=== PATIENT | male | born 1965 | race Caucasian/White ===

== ENCOUNTER 2023-08-09 01:38 | Emergency (ER) | payer OTHER, SELFPAY ==
[2023-08-09 01:42] VITALS: BP 181/108; PULSE 60; RESP 16; TEMP 36.6; O2SAT 99; BMI 28.7
--- NOTE | 2023-08-09 01:50 | CT_ITS ---
The [address] [address] Patient Name: YASMEEN VENEGAS MRN: [id number] date: 1965 Sex: M Assigned Patient Location: ER Current Patient Location: ER Accession/Order Number: [id number] Exam Date: 08/09/2023 02:06 Report Date: 08/09/2023 03:01 At the request of: TREY SMALL Procedure: CT abdomen pelvis w con EXAM: CT abdomen pelvis w con HISTORY: right upper quadrant pain COMPARISON: None. TECHNIQUE: Axial CT images through the abdomen and pelvis were obtained after the intravenous administration of 100 mL Omnipaque 300 contrast. Coronal and sagittal reformats were obtained. Dose reduction techniques were achieved by using automated exposure control and/or adjustment of mA and/or kV according to patient size and/or use of iterative reconstruction technique. FINDINGS: The visualized portions of the lung bases are clear. There is a small hiatal hernia. Abdomen: There is a subcentimeter hypodensity in the right hepatic lobe that is too small to characterize by CT size criteria. Otherwise, the liver and spleen enhance homogeneously without focal lesion. There is no intra or extrahepatic biliary duct dilatation. The gallbladder is unremarkable. The pancreas, adrenal glands, kidneys, and bowel loops, including the appendix, are unremarkable. There is no mesenteric or retroperitoneal lymphadenopathy. Pelvis: The bladder and rectum are unremarkable. There is no iliac or inguinal lymphadenopathy. Bone windows show no aggressive osseous lesions. CT/CT abdomen pelvis w con IMPRESSION: 1. No specific etiology identified to explain the patient's abdominal pain. 2. Normal appendix. Electronically authenticated by: Enoch VALLES Date: 08/09/2023 03:01
--- NOTE | 2023-08-09 01:50 | ED.ABDPAIN1 ---
HPI - Abdominal Pain General Chief Complaint: Abdominal Pain Stated Complaint: ABDOMINAL PAIN Time Seen by Provider: 08/09/23 01:41 History of Present Illness HPI narrative: 67-year-old male presents for abdominal pain. It's in his right upper quadrant and it woke him up from sleep an hour or two ago. He had some greasy food for dinner, pizza and chicken wings. He's never had pain like this before and has never had any gallbladder issues. No fever or trauma. Related Data Home Medications Medication Instructions Recorded Confirmed lisinopril 20 mg tablet mg 08/09/23 pravastatin 40 mg tablet mg 08/09/23 Previous Rx's Medication Instructions Recorded acetaminophen 300 mg-codeine 30 mg 1 tab PO Q6H PRN pain 5 days #20 08/09/23 tablet tabs ondansetron 4 mg disintegrating 4 mg PO Q6H PRN nausea and 08/09/23 tablet vomiting #20 tabs Allergies Allergy/AdvReac Type Severity Reaction Status Date / Time No Known Drug Allergies Allergy Verified 08/09/23 01:45 Review of Systems ROS Narrative A ten point review of systems is negative except as noted above. Exam Narrative Exam Narrative: Nurses note and vital signs reviewed and patient is not hypoxic. General: The patient appears well and in no apparent distress. Patient is resting comfortably on cart. Skin: Warm, dry, no pallor noted. There is no rash noted. Head: Normocephalic, atraumatic Eye: Normal conjunctiva, no drainage Ears, Nose, Mouth, and Throat: oral mucosa is moist. Nares patent. Cardiovascular: Regular Rate and Rhythm Respiratory: Patient is in no distress, no accessory muscle use, lungs are clear to auscultation, no wheezing, rales or rhonchi Back: non-tender GI: minimal tenderness in the right upper quadrant, no distention Musculoskeletal: The patient has no evidence of calf tenderness, no pitting edema, symmetrical pulses noted bilaterally Neurological: A&O, normal speech Psychiatric: Cooperative Constitutional Vital Signs, click to edit/add: Last Vital Signs Temp 97.9 F 08/09/23 01:42 Pulse 78 08/09/23 02:20 Resp 16 08/09/23 01:42 BP 184/110 H 08/09/23 02:20 Pulse Ox 99 08/09/23 01:42 O2 Del Method Room Air 08/09/23 01:42 Course Vital Signs Vital signs: Vital Signs Temperature 97.9 F 08/09/23 01:42 Pulse Rate 60 08/09/23 01:42 Respiratory Rate 16 08/09/23 01:42 Blood Pressure 181/108 H 08/09/23 01:42 Pulse Oximetry 99 08/09/23 01:42 Oxygen Delivery Method Room Air 08/09/23 01:42 Temperature 97.9 F 08/09/23 01:42 Pulse Rate 78 08/09/23 02:20 Respiratory Rate 16 08/09/23 01:42 Blood Pressure 184/110 H 08/09/23 02:20 Pulse Oximetry 99 08/09/23 01:42 Oxygen Delivery Method Room Air 08/09/23 01:42 MDM - Abdominal Pain MDM Narrative Medical decision making narrative: CT scan shows no acute findings. minimal elevation in lipase is noted. No CT findings of pancreatitis. The possibility that this is his gallbladder was discussed with the patient and he'll follow-up with his PCP if symptoms persist. Treatment diagnosis and follow-up were discussed thoroughly. Differential Diagnosis Differential diagnosis: Likely abdominal pain, acute appendicitis, calculus of kidney, constipation, gastroenteritis and pancreatitis Lab Data Attestation: I reviewed the patient's lab results. Labs: Lab Results 08/09/23 Range/Units 01:45 WBC 10.4 (4.0-11.0) 10^3/uL RBC 5.08 (4.70-6.10) 10^6/uL Hgb 15.3 (14.0-18.0) g/dL Hct 44.8 (42.0-54.0) % MCV 88.2 (80.0-94.0) fL MCH 30.1 (25.9-34.0) pg MCHC 34.2 (29.9-35.2) g/dL RDW 12.2 (11.0-15.0) % Plt Count 253 (150-450) 10^3/uL MPV 9.2 L (9.5-13.5) fL Neut % (Auto) 58.8 (43.0-75.0) % Lymph % (Auto) 28.0 (20.5-60.0) % [place] % (Auto) 10.1 (1.7-12.0) % Eos % (Auto) 1.9 (0.9-7.0) % Baso % (Auto) 0.4 (0.2-2.0) % Neut # (Auto) 6.1 (1.4-6.5) 10^3/uL Lymph # (Auto) 2.9 (1.2-3.8) 10^3/uL [place] # (Auto) 1.1 H (0.3-0.8) 10^3/uL Eos # (Auto) 0.2 (0.0-0.7) 10^3/uL Baso # (Auto) 0.0 (0.0-0.1) 10^3/uL Abs Immat Gran (auto) 0.08 H (0.00-0.03) 10^3/uL Imm/Tot Granulo (auto) 0.8 H (0.0-0.5) % Sodium 135 L (136-145) mmol/L Potassium 3.7 (3.5-5.1) mmol/L Chloride 102 (98-107) mmol/L Carbon Dioxide 29.8 (21.0-32.0) mmol/L Anion Gap 6.9 BUN 28.0 H (7.0-18.0) mg/dL Creatinine 1.32 H (0.70-1.30) mg/dL Est GFR ( Amer) >60 (>=60) Est GFR (Non-Af Amer) 56 L (>=60) BUN/Creatinine Ratio 21.2 Glucose 117 H (74-106) mg/dL Calcium 9.0 (8.5-10.1) mg/dL Total Bilirubin 0.2 (0.2-1.0) mg/dL Direct Bilirubin 0.1 (0.0-0.2) mg/dL AST 24 (15-37) U/L ALT 52 (16-63) U/L Alkaline Phosphatase 95 (46-116) U/L Total Protein 7.1 (6.4-8.2) g/dL Albumin 3.5 (3.4-5.0) g/dL Globulin 3.6 g/dL Albumin/Globulin Ratio 1.0 Amylase 74 (25-115) U/L Lipase 154.0 H (16.0-77.0) U/L Imaging Data CT scan - abdomen: Radiologist's impression: Procedure: CT abdomen pelvis w con EXAM: CT abdomen pelvis w con HISTORY: right upper quadrant pain COMPARISON: None. TECHNIQUE: Axial CT images through the abdomen and pelvis were obtained after the intravenous administration of 100 mL Omnipaque 300 contrast. Coronal and sagittal reformats were obtained. Dose reduction techniques were achieved by using automated exposure control and/or adjustment of mA and/or kV according to patient size and/or use of iterative reconstruction technique. FINDINGS: The visualized portions of the lung bases are clear. There is a small hiatal hernia. Abdomen: There is a subcentimeter hypodensity in the right hepatic lobe that is too small to characterize by CT size criteria. Otherwise, the liver and spleen enhance homogeneously without focal lesion. There is no intra or extrahepatic biliary duct dilatation. The gallbladder is unremarkable. The pancreas, adrenal glands, kidneys, and bowel loops, including the appendix, are unremarkable. There is no mesenteric or retroperitoneal lymphadenopathy. Pelvis: The bladder and rectum are unremarkable. There is no iliac or inguinal lymphadenopathy. Bone windows show no aggressive osseous lesions. IMPRESSION: 1. No specific etiology identified to explain the patient's abdominal pain. 2. Normal appendix. Electronically authenticated by: Enoch VALLES Date: 08/09/2023 Discharge Plan Discharge Chief Complaint: Abdominal Pain Clinical Impression: Abdominal pain Patient Disposition: Home, Self-Care Time of Disposition Decision: 03:12 Condition: Good Mode of Transportation: Private Vehicle Prescriptions / Home Meds: New acetaminophen-codeine 300-30 mg tablet 1 tab PO Q6H PRN (Reason: pain) 5 Days Qty: 20 0RF ondansetron 4 mg tablet,disintegrating 4 mg PO Q6H PRN (Reason: nausea and vomiting) Qty: 20 0RF No Action pravastatin 40 mg tablet lisinopril 20 mg tablet Instructions: Abdominal Pain (ED) Additional Instructions: follow up with Dr. Skinner if symptoms persist Stand Alone Forms: Portal Instructions Referrals: Fredi Skinner MD [Primary Care Provider] - 1 week
[2023-08-09 01:56] LABS: Basophils Percent Auto 0.4 % (0.2-2.0); Eosinophils Absolute Auto 0.2 10^3/uL (0.0-0.7); Eosinophils Percent Auto 1.9 % (0.9-7.0); Hematocrit 44.8 % (42.0-54.0); Hemoglobin 15.3 g/dL (14.0-18.0); Immature Granulocytes Abs Auto 0.08 10^3/uL (0.00-0.03); Immature Granulocytes Pct Auto 0.8 % (0.0-0.5); Lymphocytes Absolute Auto 2.9 10^3/uL (1.2-3.8); Mean Corpuscular HGB Conc 34.2 g/dL (29.9-35.2); Mean Corpuscular Hemoglobin 30.1 pg (25.9-34.0); Mean Corpuscular Volume 88.2 fL (80.0-94.0); Mean Platelet Volume 9.2 fL (9.5-13.5); Monocytes Absolute Auto 1.1 10^3/uL (0.3-0.8); Monocytes Percent Auto 10.1 % (1.7-12.0); Neutrophils Absolute Auto 6.1 10^3/uL (1.4-6.5); Neutrophils Percent Auto 58.8 % (43.0-75.0); Platelet Count 253 10^3/uL (150-450); Red Blood Count 5.08 10^6/uL (4.70-6.10); Red Cell Distribution Width 12.2 % (11.0-15.0); White Blood Count 10.4 10^3/uL (4.0-11.0)
[2023-08-09 02:10] LABS: Alanine Aminotransferase 52 U/L (16-63); Albumin Level 3.5 g/dL (3.4-5.0); Alkaline Phosphatase 95 U/L (46-116); Amylase 74 U/L (25-115); Anion Gap 6.9; Aspartate Amino Transferase 24 U/L (15-37); BUN Creatinine Ratio 21.2; Bilirubin Direct 0.1 mg/dL (0.0-0.2); Bilirubin Total 0.2 mg/dL (0.2-1.0); Carbon Dioxide 29.8 mmol/L (21.0-32.0); Chloride 102 mmol/L (98-107); Estimated GFR (African America >60 (>=60); Estimated GFR (Non-African Ame 56 (>=60); Globulin 3.6 g/dL; Glucose 117 mg/dL (74-106); Potassium 3.7 mmol/L (3.5-5.1); Sodium 135 mmol/L (136-145); Total Protein 7.1 g/dL (6.4-8.2)
[2023-08-09 02:20] VITALS: BP 184/110; PULSE 78
[2023-08-09] MEDS: ONDANSETRON PF 4 MG/2 ML VIAL IV (02:38)
[2023-08-09] MEDS: MORPHINE SULFATE 4 MG/ML VIAL IV (02:38)
[2023-08-09 03:33] VITALS: BP 162/90; PULSE 56; RESP 16; O2SAT 100
== END 2023-08-09 03:30 | disposition home or self-care (01) ==
PROVIDERS: Emergency Provider Emergency Medicine; PCP Family Medicine
DX: R10.9 Unspecified abdominal pain (principal); Z79.899 Other long term (current) drug therapy
CPT/HCPCS: 36415; 74177; 80048; 80076; 82150; 83690; 85025; 96374; 99285; J2270; J2405; Q9967

== ENCOUNTER 2023-09-19 07:41 | Outpatient (OUT) | payer OTHER, SELFPAY ==
--- OUTSIDE RECORDS SUMMARY | 2023-09-19 07:47 | XMS_ITS | CCD ---
Author Name Unknown Address [address] [place] [address] Organization [facility] Care Team Providers Care Roll Former Name Role Phone LUIS FELIPE, DR LAM Admitting Unavailable KECIAY, DR LAM Attending Unavailable HOY, DR LAM Primary Care Unavailable KECIAY, DR LAM Consulting Unavailable HOY, DR LAM Admitting Unavailable HOY, DR LAM Attending Unavailable HOY, DR LAM Primary Care Unavailable HOY, DR LAM Consulting Unavailable HOY, DR LAM Admitting Unavailable HOY, DR LAM Attending Unavailable HOY, DR LAM Primary Care Unavailable HOY, DR ALM Consulting Unavailable WEST, DR FAYE Gooden Consulting Unavailable Problems Active Problems Problem Classification Problem Date Documented Da te Episodic/Chronic Other screening for suspected conditions (not mental disorders or infectious disease) (1 source) Encounter for screening for malignant neoplasm of prostate; Translations: [ENC SCREEN MALIG NEOPLASM PROSTATE] Onset: 07-15-2022 Episodic Unclassified (2 sources) CONTACT W/AND (SUSP) EXPOS COVID-19; Translations: [CONTACT W/AND (SUSP) EXPOS COVID-19] Onset: 08-05-2021 Viral infection (1 source) COVID-19; Translations: [COVID-19] Onset: 08-05-2021 Past or Other Problems Problem Classification Problem Date Documented Da te Episodic/Chronic Joint disorders and dislocations; trauma-related (1 source) Complex tear of medial meniscus, current injury, right knee, initial encounter; Translations: [COMPLEX TEAR MM CURR RT KNEE INIT] Onset: 08-29-2021 Episodic Other non-traumatic joint disorders (4 sources) Pain in right knee; Translations: [PAIN IN RIGHT KNEE] Onset: 08-27-2021 Episodic Unclassified (1 source) CONTACT W/AND (SUSP) EXPOS COVID-19; Translations: [CONTACT W/AND (SUSP) EXPOS COVID-19] Onset: 07-30-2021 Results Test Name Value Interpretation Reference Range Facility INSULINon 07-12-2022 Insulin 7.4 uIU/mL Normal 2.6-24.9 [facility] Comment on above: Performed By: #### I NSULIN #### [facility] [address] [place] [address] Dr. Aparna Teran CBC AUTO DIFFon 07-11-2022 BASO # 0.0 103/ul Normal 0.0-0.1 [facility] Comment on above: Performed By: #### C BC #### [facility] [address] [place] [address] Dr. Aparna Teran Basophils/100 WBC (Bld) 0.5 % Normal 0.2-2.0 [facility] Comment on above: Performed By: #### C BC #### [facility] [address] [place] [address] Dr. Aparna Teran EO # 0.1 103/ul Normal 0.0-0.7 [facility] Comment on above: Performed By: #### C BC #### [facility] [address] [place] [address] Dr. Aparna Teran Eosinophils/100 WBC (Bld) 1.4 % Normal 0.9-7.0 [facility] Comment on above: Performed By: #### C BC #### [facility] [address] [place] [address] Dr. Aparna Teran Erythrocyte distribution width (RBC) [Ratio] 12.6 % Normal 11.0-15.0 [facility] Comment on above: Performed By: #### C BC #### [facility] [address] [place] [address] Dr. Aparna Teran Hematocrit (Bld) [Volume fraction] 45.2 % Normal 42.0-54.0 [facility] Comment on above: Performed By: #### C BC #### [facility] [address] [place] [address] Dr. Aparna Teran Hemoglobin (Bld) [Mass/Vol] 15.6 g/dL Normal 14.0-18.0 [facility] Comment on above: Performed By: #### C BC #### [facility] [address] [place] [address] Dr. Aparna Teran IG # 0.02 10e3/ul Normal 0.00-0.03 [facility] Comment on above: Performed By: #### C BC #### [facility] [address] [place] [address] Dr. Aparna Teran IG % 0.3 % Normal 0.0-0.5 [facility] Comment on above: Performed By: #### C BC #### [facility] [address] [place] [address] Dr. Aparna Teran LYMPH # 1.6 103/ul Normal 1.2-3.8 [facility] Comment on above: Performed By: #### C BC #### [facility] [address] [place] [address] Dr. Aparna Teran Lymphocytes/100 WBC (Bld) 25.0 % Normal 20.5-60.0 [facility] Comment on above: Performed By: #### C BC #### [facility] [address] [place] [address] Dr. Aparna Teran MANUAL DIFF REQ NO Normal [facility] Comment on above: Performed By: #### C BC #### [facility] [address] [place] [address] Dr. Aparna Teran MCH (RBC) [Entitic mass] 29.3 pg Normal 25.9-34.0 [facility] Comment on above: Performed By: #### C BC #### [facility] [address] [place] [address] Dr. Aparna Teran MCHC (RBC) [Mass/Vol] 34.5 g/dL Normal 29.9-35.2 [facility] Comment on above: Performed By: #### C BC #### [facility] [address] [place] [address] Dr. Aparna Teran MCV (RBC) [Entitic vol] 84.8 fL Normal 80.0-94.0 [facility] Comment on above: Performed By: #### C BC #### [facility] [address] [place] [address] Dr. Aparna Teran MONO # 0.4 103/ul Normal 0.3-0.8 [facility] Comment on above: Performed By: #### C BC #### [facility] [address] [place] [address] Dr. Aparna Teran Monocytes/100 WBC (Bld) 6.6 % Normal 1.7-12.0 [facility] Comment on above: Performed By: #### C BC #### [facility] [address] [place] [address] Dr. Aparna Teran NEUT # 4.2 103/ul Normal 1.4-6.5 [facility] Comment on above: Performed By: #### C BC #### [facility] [address] [place] [address] Dr. Aparna Teran Neutrophils/100 WBC (Bld) 66.2 % Normal 43.0-75.0 [facility] Comment on above: Performed By: #### C BC #### [facility] [address] [place] [address] Dr. Aparna Teran Platelet mean volume (Bld) [Entitic vol] 9.9 fL Normal 9.5-13.5 [facility] Comment on above: Performed By: #### C BC #### [facility] [address] [place] [address] Dr. Aparna Teran PLT 205 103/ul Normal 150-450 [facility] Comment on above: Performed By: #### C BC #### [facility] [address] [place] [address] Dr. Aparna Teran RBC 5.33 106/ul Normal 4.70-6.10 [facility] Comment on above: Performed By: #### C BC #### [facility] [address] [place] [address] Dr. Aparna Teran WBC 6.4 103/ul Normal 4.0-11.0 [facility] Comment on above: Performed By: #### C BC #### [facility] [address] [place] [address] Dr. Aparna Teran GLYCOHEMOGLOBIN A1Con 2021 ADA RECOMMENDATION SEE BELOW Normal [facility] Comment on above: Result Comment: ADA RECOMMENDED LIMIT 4.0 - 6.0 ADA THERAPEUTIC TARGET < 7.0 ACTION SUGGESTED > 7.0 Performed By: #### A 1C #### [facility] [address] [address] [address] Aparna Teran Glucose [Mass/Vol] 117 mg/dL Normal [facility] Comment on above: Performed By: #### A 1C #### [facility] [address] [address] [address] Aparna Teran HbA1c (Bld) [Mass fraction] 5.7 % Normal 4.5-6.2 [facility] Comment on above: Performed By: #### A 1C #### [facility] [address] [place] [address] Dr. Aparna Teran LIPID PROFILEon 07-11-2022 CHOL-HDL RATIO NORM SEE BELOW Normal [facility] Comment on above: Result Comment: 3.3 - 4.4 LOW RISK 4.4 - 7.1 AVERAGE RISK 7.1 - 11.0 MODERATE RISK >11.0 HIGH RISK Performed By: #### L IPID, CMP #### [facility] [address] [place] [address] Dr. Aparna Teran Cholesterol [Mass/Vol] 168 mg/dL Normal <=200 [facility] Comment on above: Performed By: #### L IPID, CMP #### [facility] [address] [address] [address] pAarna Teran Cholesterol in HDL [Mass/Vol] 40 mg/dL Normal 40-60 [facility] Comment on above: Performed By: #### L IPID, CMP #### [facility] [address] [address] [address] Aparna Teran Cholesterol in LDL [Mass/Vol] 106.6 mg/dL Normal [facility] Comment on above: Performed By: #### L IPID, CMP #### [facility] [address] [place] [address] Dr. Aparna Teran Cholesterol.total/Ch olesterol in HDL [Mass ratio] 4.2 {ratio} Normal [facility] Comment on above: Performed By: #### L IPID, CMP #### [facility] [address] [address] [address] Aparna Teran HDL NORMAL > or = 60 mg/dl - LOW CARDIOVASCULAR RISK <40 mg/dl - HIGH CARDIOVASCULAR RISK Normal [facility] Comment on above: Performed By: #### L IPID, CMP #### [facility] [address] [address] [address] Aparna Teran LDL CALC NORMAL SEE BELOW Normal [facility] Comment on above: Result Comment: <100 mg/dl OPTIMAL 100 - 129 mg/dl NEAR OR ABOVE OPTIMAL 130 - 159 mg/dl BORDERLINE HIGH 160 - 189 mg/dl HIGH >190 mg/dl VERY HIGH Performed By: #### L IPID, CMP #### [facility] [address] [place] [address] Dr. Aparna Teran Triglyceride [Mass/Vol] 107 mg/dL Normal <=150 [facility] Comment on above: Performed By: #### L IPID, CMP #### [facility] [address] [address] [address] Aparna Teran VLDL CALC 21.4 mg/dL Normal [facility] Comment on above: Performed By: #### L IPID, CMP #### [facility] [address] [place] [address] Dr. Aparna Teran PROF 14(COMP METB)on 022 Albumin [Mass/Vol] 3.8 g/dL Normal 3.4-5.0 [facility] Comment on above: Performed By: #### L IPID, CMP #### [facility] [address] [place] [address] Dr. Aparna Teran Albumin/Globulin [Mass ratio] 1.1 {ratio} Normal [facility] Comment on above: Performed By: #### L IPID, CMP #### [facility] [address] [place] [address] Dr. Aparna Teran ALP [Catalytic activity/Vol] 100 U/L Normal 46-116 [facility] Comment on above: Performed By: #### L IPID, CMP #### [facility] [address] [address] [address] Aparna Teran ALT [Catalytic activity/Vol] 35 U/L Normal 16-63 [facility] Comment on above: Performed By: #### L IPID, CMP #### [facility] [address] [address] [address] Aparna Teran Anion gap [Moles/Vol] 9.2 mmol/L Normal [facility] Comment on above: Performed By: #### L IPID, CMP #### [facility] [address] [address] [address] Aparna Teran AST [Catalytic activity/Vol] 24 U/L Normal 15-37 [facility] Comment on above: Performed By: #### L IPID, CMP #### [facility] [address] [place] [address] Dr. Aparna Teran Bilirubin [Mass/Vol] 0.6 mg/dL Normal 0.2-1.0 [facility] Comment on above: Performed By: #### L IPID, CMP #### [facility] [address] [place] [address] Dr. Aparna Teran Calcium [Mass/Vol] 8.9 mg/dL Normal 8.5-10.1 [facility] Comment on above: Performed By: #### L IPID, CMP #### [facility] [address] [place] [address] Dr. Aparna Teran Chloride [Moles/Vol] 103 mmol/L Normal 98-107 [facility] Comment on above: Performed By: #### L IPID, CMP #### [facility] [address] [place] [address] Dr. Aparna Teran CO2 [Moles/Vol] 29.0 mmol/L Normal 21.0-32.0 [facility] Comment on above: Performed By: #### L IPID, CMP #### [facility] [address] [place] [address] Dr. Aparna Teran Creatinine [Mass/Vol] 1.13 mg/dL Normal 0.70-1.30 [facility] Comment on above: Performed By: #### L IPID, CMP #### [facility] [address] [address] [address] Aparna Teran EGFR-AF PRYDEINIG >60 Normal >=60 [facility] Comment on above: Performed By: #### L IPID, CMP #### [facility] [address] [address] [address] Aparna Teran EGFR-NON AF PRYDEINIG >60 Normal >=60 [facility] Comment on above: Performed By: #### L IPID, CMP #### [facility] [address] [address] [address] Aparna Teran Globulin (S) [Mass/Vol] 3.4 g/dL Normal [facility] Comment on above: Performed By: #### L IPID, CMP #### [facility] [address] [address] [address] Aparna Teran Glucose [Mass/Vol] 102 mg/dL Normal 74-106 [facility] Comment on above: Performed By: #### L IPID, CMP #### [facility] [address] [address] [address] Aparna Teran Potassium [Moles/Vol] 4.2 mmol/L Normal 3.5-5.1 [facility] Comment on above: Performed By: #### L IPID, CMP #### [facility] [address] [address] [address] Aparna Teran Protein [Mass/Vol] 7.2 g/dL Normal 6.4-8.2 [facility] Comment on above: Performed By: #### L IPID, CMP #### [facility] [address] [address] [address] Aparna Teran Sodium [Moles/Vol] 137 mmol/L Normal 136-145 [facility] Comment on above: Performed By: #### L IPID, CMP #### [facility] [address] [address] [address] Aparna Teran Urea nitrogen [Mass/Vol] 22.0 mg/dL Critically high 7.0-18.0 [facility] Comment on above: Performed By: #### L IPID, CMP #### [facility] [address] [address] [address] Aparna Teran Urea nitrogen/Creatinine [Mass ratio] 19.5 mg/mg Normal [facility] Comment on above: Performed By: #### L IPID, CMP #### [facility] [address] [place], [place] [address] Dr. Aparna Teran MRI KNEE RT WO CONon 022 MRI KNEE RT WO CON EXAMINATION: MRI KNEE RT WO CON HISTORY: Pain of right knee joint COMPARISON: No relevant comparison available. TECHNIQUE: A complete multi-planar MRI was performed. FINDINGS: MEDIAL COMPARTMENT MEDIAL MENISCUS: Complex tear involving the body and posterior horn CARTILAGE: Moderate chondromalacia BONES: 1.9 x 1.3 cm area of bone edema in the medial femoral condyle best seen on sagittal image #11. MCL AND MEDIAL CAPSULE: Normal medial collateral ligament and medial capsule. LATERAL COMPARTMENT LATERAL MENISCUS: No visible tear or significant degeneration. CARTILAGE: No visible defect. BONES: No marrow pathology, fracture, or significant arthropathy. LCL/POSTEROLAT COMPLEX: Normal lateral collateral ligament, fascicles, lateral capsule and ligaments. ANTERIOR COMPARTMENT PATELLA: No marrow pathology, fracture, or significant arthropathy. CARTILAGE: No visible defect. TENDONS: Normal. EFFUSION: Large joint effusion. ACL: Increased signal suggesting strain PCL: Ill-defined proximal fibers suggesting partial tear MENISCOFEMORAL: Normal meniscofemoral ligaments. OTHER: Negative. 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 When there are no FDA-approved or cleared tests available, and other criteria are met, FDA can make tests available under an emergency access mechanism called an Emergency Use Authorization (EUA). The EUA for this test is supported by the [place] of Health and Human Service's (HHS's) declaration that circumstances exist to justify the emergency use of in vitro diagnostics for the detection and/or diagnosis of the virus that causes COVID-19. This EUA will remain in effect (meaning this test can be used) for the duration of the COVID-19 declaration justifying emergency of IVDs, unless it is terminated or revoked by FDA (after which the test may no longer be used). Performed By: #### [facility] #### [facility] [address] [address] [address] Aparna Teran Provider Letteron 07-13-2021 Provider Letter July 13, 2021 July 13, 2021 YASMEEN VENEGAS [address] [place] [address] YASMEEN VENEGAS 1965 Dear Yasmeen _ , We have been trying to reach you with no success. It is important that you return our call regarding your referral from Dr. Briscoe upon receiving this letter. Also, at the time of your call, please provide us with your current information. Thank you for your prompt attention to this matter. Sincerely, General Surgery [phone] [facility] Physician Referralon 021 Physician Referral [phone] [id number] [facility] Encounters Encounter Date Encounter Type Care Provider Facility Start: 07-15-2022 Encounter for genera l adult medical examination without abnormal findings DR CAROLE BRISCOE [facility] Start: 07-11-2022 End: 07-12-[address] CAROLE BRISCOE Facility:[facility] Start: 07-11-2022 End: 07-12-2022 Encounter for general adult medical examination without abnormal findings DR CAROLE BRISCOE Facility:[facility] Start: 08-27-2021 End: 08-28-[address] CAROLE BRISCOE Facility:[facility] Start: 07-30-2021 End: 07-30-[address] CAROLE BRISCOE Facility:[facility] Procedures Date Procedure Procedure Detail Performing Clinician Start: 07-11-[address] BREN BRISCOE Comment on above: Performed By: #### P [facility] #### [facility] [address] [place], [place] [address] Dr. Aparan Teran Payers Date Payer Category Payer Unknown [id number] [id number] [id number] 1965 Unknown [id number] [id number] [id number] 1965 Unknown [id number] [id number] [id number] 1957 Unknown [id number] Summary Purpose Family History No Family History Records FoundNo Family History Records Found Advance Directives No Advanced Directives Records FoundNo Advanced Directives Records Found Additional Source Comments (unrecognized sect ion and content) No Status Records FoundNo Status Records Found INFORMATION SOURCE (unrecogn ized section and content) DATE CREATED AUTHOR 07/14/2021 [facility] DATE CREATED AUTHOR AUTHOR'S ORGANIZ [facility] 07/16/2022 [facility] FOR RECORDS PERTAINING TO PATIENTS WHO ARE OR HAVE BEEN ENROLLED IN A CHEMICAL DEPENDENCY/SUBSTANCEABUSE PROGRAM, SOME INFORMATION MAY BE OMITTED. This clinical summary was aggregated from multiple sources. Caution should be exercised in using it in the provision of clinical care. This summary normalizes information from multiple sources, and as a consequence, information in this document may materially change the coding, format and clinical context of patient data. In addition, data may be omitted in some cases. CLINICAL DECISIONS SHOULD BE BASED ON THE PRIMARY CLINICAL RECORDS. [employer] provides no warranty or guarantee of the accuracy or completeness of information in this document.
[2023-09-19 08:22] LABS: Basophils Percent Auto 0.5 % (0.2-2.0); Eosinophils Absolute Auto 0.1 10^3/uL (0.0-0.7); Eosinophils Percent Auto 1.2 % (0.9-7.0); Hematocrit 46.9 % (42.0-54.0); Hemoglobin 15.6 g/dL (14.0-18.0); Immature Granulocytes Abs Auto 0.01 10^3/uL (0.00-0.03); Immature Granulocytes Pct Auto 0.1 % (0.0-0.5); Mean Corpuscular HGB Conc 33.3 g/dL (29.9-35.2); Mean Corpuscular Hemoglobin 29.7 pg (25.9-34.0); Mean Corpuscular Volume 89.3 fL (80.0-94.0); Mean Platelet Volume 10.1 fL (9.5-13.5); Monocytes Absolute Auto 0.8 10^3/uL (0.3-0.8); Neutrophils Absolute Auto 5.6 10^3/uL (1.4-6.5); Neutrophils Percent Auto 74.2 % (43.0-75.0); Platelet Count 170 10^3/uL (150-450); Red Blood Count 5.25 10^6/uL (4.70-6.10); Red Cell Distribution Width 12.9 % (11.0-15.0); White Blood Count 7.6 10^3/uL (4.0-11.0)
[2023-09-19 09:27] LABS: Estimated Average Glucose 111 mg/dL; Glycohemoglobin A1C 5.5 % (4.5-6.2)
[2023-09-19 11:57] LABS: Alanine Aminotransferase 36 U/L (16-63); Albumin Level 3.7 g/dL (3.4-5.0); Alkaline Phosphatase 99 U/L (46-116); Anion Gap 10.8; Aspartate Amino Transferase 26 U/L (15-37); BUN Creatinine Ratio 16.8; Bilirubin Total 0.6 mg/dL (0.2-1.0); Calcium 9.2 mg/dL (8.5-10.1); Carbon Dioxide 28.6 mmol/L (21.0-32.0); Chloride 103 mmol/L (98-107); Chol HDL Ratio 4.3; Cholesterol 167 mg/dL (<=200); Estimated GFR (African America >60 (>=60); Estimated GFR (Non-African Ame >60 (>=60); Globulin 3.7 g/dL; Glucose 90 mg/dL (74-106); HDL Cholesterol 39 mg/dL (40-60); Potassium 4.4 mmol/L (3.5-5.1); Sodium 138 mmol/L (136-145); Total Protein 7.4 g/dL (6.4-8.2); Triglycerides 95 mg/dL (<=150)
== END 2023-09-19 07:42 | disposition home or self-care (01) ==
LOC: LAB 07:43
PROVIDERS: PCP Family Medicine; Visit Provider Family Medicine
DX: Z00.00 Encounter for general adult medical examination without abnormal findings (principal); R53.83 Other fatigue
CPT/HCPCS: 36415; 80053; 80061; 83036; 85025; G0103

== ENCOUNTER 2025-01-27 08:16 | Outpatient (OUT) | payer OTHER, SELFPAY ==
--- OUTSIDE RECORDS SUMMARY | 2024-01-15 07:08 | XMS_ITS ---
Author Organization [facility] [place] Address [address] [place] [address] Care Team Providers Care Member Of Technical Staff Name Role Phone Susanne Stephon Primary Care Provider [phone] CAROLE BRISCOE Unavailable [phone] Medications Medication SIG (Take, Route, Fr equency, Duration) Notes Start Date End Date Status Lisinopril 20 MG 2 tablets Oral once daily for 90 days Active Encounters Encounter Location Date Provider Diagnosis [facility] [address] [place] [address] 01/15/2024 CAROLE BRISCOE Plan Of Treatment Medication Medication Name Sig Start Date Stop Date Notes Lisinopril 20 MG 2 tablets Oral once daily for 90 days Progress Notes * Jadon RUSSODOB:1965 (58 yo M)Acc No.[id number]:01/15/2024 Patient: Imani Jadon YOUNG :1965 A ge:58 Y S ex:Male Address:[address] [facility] [place] [address] * Refills Refill Lisinopril Tablet, 20 MG, Oral, 180, 2 tablets, once daily, 90 days, Refills=3 * true * Date: Generated for Jorge rizo/Myriam/eTransmitting on: 0 01/27/2025 08:22 AM EDT
--- OUTSIDE RECORDS SUMMARY | 2024-10-12 04:54 | XMS_ITS ---
Author Organization [facility] [place] Address [address] [place] [address] Care Team Providers Care Payroll Manager Name Role Phone Kalianita Stephon Primary Care Provider REASON FOR VISIT rf Pravastatin Medications Medication SIG (Take, Route, Frequency, Duration) Notes Start Date End Date Status Pravastatin Sodium 40 MG 1 tablet Orally Once a day for 30 days 07/07/2023 Active Encounters Encounter Location Date Provider Diagnosis [facility] [address] [facility] [place] [address] 10/12/2024 Stephon Susanne Plan Of Treatment Medication Medication Name Sig Start Date Stop Date Notes Pravastatin Sodium 40 MG 1 tablet Orally Once a day for 30 days 07/07/2023 Progress Notes * Jadon RUSSODOB:1965 (58 yo M)Acc No.[id number]:10/12/2024 Patient: Imani Jadon YOUNG :1965 A ge:58 Y S ex:Male Address:[address] [place] [address] * Refills Refill Pravastatin Sodium Tablet, 40 MG, Orally, 30, 1 tablet, Once a day, 30 days, Refills=11 * true * Date: Generated for Jorge rizo/Myriam/eTransmitting on: 0 01/27/2025 08:22 AM EDT
--- OUTSIDE RECORDS SUMMARY | 2024-11-11 11:00 | XMS_ITS ---
Author Organization [facility] in [place] Address [address] [place] [address] Care Team Providers Care Sanitation Director Name Role Phone Susanne Stephon Primary Care Provider Allergies No Known Allergies Reason For Referral Reason screening colonoscop y Diagnosis 1 Well adult (Z00.00) Referral Organization [facility] Referring Provider First Name Stephon Referring Provider Last Name Susanne Referring Provider Speciality Family Med icibenita Referred Provider Justin Jacobson Referred Provider Specialty General Surg alton Referral Priority Routine REASON FOR VISIT ANNUAL-NEEDS MEDS- due for yearly labs Medications Medication SIG (Take, Route, Frequency, Duration) Notes Start Date End Date Status Lisinopril 20 MG 2 tablets Oral once daily for 90 days Active Pravastatin Sodium 40 MG 1 tablet Orally Once a day for 30 days 07/07/2023 Active Social History Tobacco Use: Social History Observation Description Date Details (start date - stop date) Never Smoker NA - NA Tobacco Use/Smoking Question Answer Notes Patient is a nonsmoker Problems Problem Type SNOMED Code ICD Code Onset Dates Problem Status W/U Status Risk Notes Problem Well adult (083910904) Well adult (Z00.00) Active confirmed Vital Signs Blood pressure systolic 108 mm Hg 11/12/19 25 Blood pressure diastolic 82 mm Hg 025 Height 70 in 11/11/2024 Weight 207.8 lbs 11/11/2024 BMI 29.81 kg/m2 11/11/2024 Encounters Encounter Location Date Provider Diagnosis [facility] [address] [facility] [place] [address] 11/11/2024 Stephon Hoy Well adult Z00.0 0 Assessments Encounter Date Diagnosis (ICD Code) Assessment Notes Treatment Notes Treatment Clinical Notes Section Notes 11/11/2024 Well adult (ICD-10 - Z00.00) Plan Of Treatment Medication Medication Name Sig Start Date Stop Date Notes Lisinopril 20 MG 2 tablets Oral once daily for 90 days Pravastatin Sodium 40 MG 1 tablet Orally Once a day for 30 days 07/07/2023 Pending Test Test Name Order Date HEMOGLOBIN A1C (GLYCO) 11/11/2024 LIPID PANEL (CHOL/TRIG/HDL/LDL) 11/12/19 THYROID PANEL (T4/TSH/FREE T3) PSA, SCREENING 11/11/2024 CMP (COMP MET WILKINS) w/eGFR CKD-EPI 2024 CBC WITH DIFF 11/11/2024 Referrals Referral Date Details 11/11/2024 11/11/2024, abenain ryan colonoscopy, Justin Jacobson Progress Notes * Jadon RUSSODOB:1965 (58 yo M)Acc No.[id number]:11/11/2024 Progress Note Patient: Jadon STERN Provider: Arlyn Skinner ([facility])MD :1965 A ge:58 Y S ex:Male Date:11/11/2024 Address:[address] [place], [place] [id number] Check In:02:49 PM ESTCheck O ut:04:05 PM EST Subjective: * Chief Complaints: * A NNUAL-NEEDS MEDS- due for yearly labs * HPI: D epression Screening: PHQ-2 (2015 Edition) L ittle interest or pleasure in doing things??Not at all F eeling down, depressed, or hopeless? N ot at all T otal Score 0 * ROS: E ENT: hearing changes d enies. v isual changes d enies.?non-healing mouth sores d enies. s wollen glands or neck lumps d enies. h oarseness d enies. s ore throat d enies. d ifficulty swallowing d enies. n ose bleeds d enies. n praveen congestion d enies. e ar ache d enies. e ar discharge?denies. r inging in ears d enies. l ight sensitivity d enies. e ye pain d enies. b lurring d enies. e ye irritation d enies. d ouble vision d enies.?vision loss d enies. G eneral/Constitutional: Sweats: D enies. F atigue d enies. S leep problems d enies. A norexia d enies. M alaise d enies. W eight loss d enies.?Fatigue or Weakness d enies. F ever or Chills d enies. C ardiovascular: Shortness of Breath w/lying flat d enies. L ightheadedness/dizziness d enies. C hest tightness/ heavy pressure d enies. S welling of legs, ankles, or feet d enies. W aking up with shortness of breath d enies. C hest pain denies. P alpitations d enies. W eight gain d enies. R espiratory: Chronic or frequent cough d enies. C oughing up blood?denies. D ifficulty breathing d enies. P roductive cough d enies. S noring?denies. S hortness of breath that awakens from sleep (PND) d enies. C hest pain d enies. S putum production d enies. W heezing d enies. M usculoskeletal: Joint pain d enies. J oint Fluid d enies. B ack pain d enies. K nee pain d enies. N reginaldo pain d enies. J oint Stiffness d enies. M uscle cramps d enies. W eakness of muscles d enies. A rthritis d enies. M uscle aches d enies. P ain in shoulder(s) d enies. S wollen joints d enies. * Active Problem List I10 Essential Hypertensi on Modified On:10/19/2022/U Status:confirmed R10.11 Right upper quadrant pain Modified On:08/15/2023/U Status:confirmed J21.9 Acute bronchiolitis Modified On:10/14/2023W/U Status:confirmed Z00.00 Well adult Modified On:11/11/2024W/U Status:confirmed * Medical History: * Surgical History: H ernia Repair Knee Repair- Right Vasectomy * Hospitalization/Major Diagno stic Procedure: D enies Past Hospitalization * Family History: F ather: alive, diagnosed with Unspecified essential hypertension. M other: alive, diagnosed with Unspecified essential hypertension. S ister(s): alive. S on(s): alive. D gordohter(s): alive. 2 sister(s) - healthy. 2 son(s) , 2 daughter(s) - healthy. . * Social History: T obacco Use: T obacco Use/Smoking P atient is a n onsmoker * Medications: T akingLisinopril 20 MG Tablet 2 tablets Oral once daily Pravastatin Sodium 40 MG Tablet 1 tablet Orally Once a day Taking Lisinopril 20 MG Tablet 2 tablets Oral once daily Taking Pravastatin Sodium 40 MG Tablet 1 tablet Orally Once a day DiscontinuedAmoxicillin-Pot Clavulanate 875-125 MG Tablet 1 tablet Orally every 12 hrs Medication List reviewed and reconciled with the patientDiscontinued Amoxicillin-Pot Clavulanate 875-125 MG Tablet 1 tablet Orally every 12 hrs Medication List reviewed and reconciled with the patient * Allergies: N .K.D.A.no[Allergies Verified] Objective: * Vitals: W t:207.8lbs, Ht: 70 in, BP:108/82mm Hg, BMI:29.81Index, Ht-cm: 177.8 cm, Wt-k.26 kg. * Examination: P hysical Exam: GENERAL: w ell developed, well nourished, in no acute distress. HEAD: n ormocephalic/atraumatic. EYES: p upils equal, round and reactive to light, conjunctivae and sclerae normal. EARS: n o deformity or lesion of external ear, canals and TM appear normal bilaterally, TM's intact, not inflamed with normal light reflex, hearing grossly normal to conversational speech. NOSE: n o deformity, discharge, inflammation, or lesions.? MOUTH: m ucous membranes moist, normal oropharynx and posterior pharynx without lesions or exudates, tongue normal, dentition normal. NECK: n reginaldo supple, no masses or palpable cervical nodes, trachea midline, thyroid without nodules, masses, tenderness, or enlargement. CHEST: n o chest wall deformity, no chest wall tenderness.? LUNGS: n ormal respiratory effort and clear to auscultation, no wheezes, rales, or rhonchi, good air exchange. CARDIO: r egular rate and rhythm, normal S1 and S2, nor murmur, rub, or gallop. PULSES: n ormal capillary refill. ABDOMEN: s oft, non-distended, non-tender, no masses. MUSCULOSKELETAL: n o deformity or scoliosis noted, normal range of motion, joints normal, no erythema, edema, effusion, or ecchymosis. EXTREMITY: n o clubbing, cyanosis, edema, or deformity with normal ROM in both upper and lower bilateral extremities. NEUROLOGIC: g rossly normal. SKIN: n o rashes, ulcerations, or suspicious lesions. LYMPH NODES: n o cervical adenopathy, nodes normal. MENTAL STATUS: a lert and oriented x3, normal mood and affect. Assessment: * Assessment: 1. W ell adult - Z00.00 (Primary) Plan: * Treatment: * Procedure Codes: * Preventive Medicine: Screenings/Counseling: B DC ACTION PLAN Above Normal BMI Follow-up D ietary management education, guidance, and counseling * * Sign off status: Completed Visit Status: C HK (Check Out) true * Provider: Arlyn Skinner ([facility])MD Date: 0 11/11/2024 Generated for Printi ng/Myriam/eTransmitting on: 0 01/27/2025 08:23 AM EDT History and Physical Notes * HPI (History of Present Illness) Category Sub-Category Detail Notes Category Not es Depression Screening PHQ-2 (2015 Edition) Little interest or pleasure in doing things?: Not at all Feeling down, depressed, or hopeless?: N ot at all Total Score: 0 Examination Category Sub-Category Detail Notes Category Not es Physical Exam GENERAL: well developed, well nourished, in no acute distress HEAD: normocephalic/atraum atic EYES: pupils equal, round and reactive to light, conjunctivae and sclerae normal EARS: no deformity or lesi on of external ear, canals and TM appear normal bilaterally, TM's intact, not inflamed with normal light reflex, hearing grossly normal to conversational speech NOSE: no deformity, discha rge, inflammation, or lesions MOUTH: mucous membranes ivan st, normal oropharynx and posterior pharynx without lesions or exudates, tongue normal, dentition normal NECK: neck supple, no mass es or palpable cervical nodes, trachea midline, thyroid without nodules, masses, tenderness, or enlargement CHEST: no chest wall deform ity, no chest wall tenderness LUNGS: normal respiratory e ffort and clear to auscultation, no wheezes, rales, or rhonchi, good air exchange CARDIO: regular rate and rhy thm, normal S1 and S2, nor murmur, rub, or gallop PULSES: normal capillary ref ill ABDOMEN: soft, non-distended, non-tender, no masses RECTAL: MUSCULOSKELETAL: no deformity or scol iosis noted, normal range of motion, joints normal, no erythema, edema, effusion, or ecchymosis EXTREMITY: no clubbing, cyanosi s, edema, or deformity with normal ROM in both upper and lower bilateral extremities NEUROLOGIC: grossly normal SKIN: no rashes, ulceratio ns, or suspicious lesions LYMPH NODES: no cervical adenopat hy, nodes normal MENTAL STATUS: alert and oriented x 3, normal mood and affect Consultation Request Notes Referral Date Referring Provider Referred Provider Not dina 11/11/2024 Stephon Skinner Michael screening colo noscopy
--- OUTSIDE RECORDS SUMMARY | 2025-01-27 08:22 | XMS_ITS | Clinical Summary ---
Author Organization [facility] Address [address] [place] [address] Care Team Providers Care Biogeographer Name Role Phone Unavailable Primary Care Provider Unavailabl e Social History Tobacco Use Types Packs/Day Years Used Date Smoking Tobacco: Never Assessed Sex and Gender Information Value Date Recorded Sex Assigned at Not on file Legal Sex Male 8:25 PM EDT Gender Identity Not on file Sexual Orientation Not on file Last Filed Vital Signs Vital Sign Reading Time Taken Comments Blood Pressure - - Pulse - - Temperature - - Respiratory Rate - - Oxygen Saturation - - Inhaled Oxygen Concentration - - Weight 97.1 kg (214 lb) 09/27/2021 12:00 PM EST Height 177.8 cm (5' 10 ) 09/27/2021 12:00 PM EST Body Mass Index 30.71 09/27/2021 12:00 PM EST Plan of Treatment Not on file
--- OUTSIDE RECORDS SUMMARY | 2025-01-27 08:22 | XMS_ITS | Clinical Summary ---
Author Organization [email or web address] Address [id number] [address] [place] [address] Care Team Providers Care Vest Maker Name Role Phone Fredi Skinner MD Primary Care Provider [phone] Allergies No known active allergies Medications pravastatin (PRAVACHOL) 40 mg tablet Take 40 mg by mouth daily. Active lisinopriL (PRINIVIL,ZESTRI L) 20 mg tablet Take 20 mg by mouth daily. Active Active Problems No known active problems Social History Tobacco Use Types Packs/Day Years Used Date Smoking Tobacco: Never Smokeless Tobacco: Never Alcohol Use Standard Drinks/Week Comments Never 0 (1 standard drink = 0.6 oz pur e alcohol) Sex and Gender Information Value Date Recorded Sex Assigned at Not on file Legal Sex Male 11:20 AM EST Gender Identity Not on file Sexual Orientation Not on file Last Filed Vital Signs Vital Sign Reading Time Taken Comments Blood Pressure 151/98 10/10/2021 4:00 PM EST Pulse 53 10/10/2021 4:00 PM EST Temperature 36.7 C (98.1 F) 10/10/2021 12:44 PM EST Respiratory Rate 20 10/10/2021 4:00 PM EST Oxygen Saturation 97% 10/10/2021 4:00 PM EST Inhaled Oxygen Concentration - - Weight 97.5 kg (215 lb) 10/10/2021 12:44 PM EST Height 177 cm (5' 9.69 ) 10/10/2021 12:44 PM EST Body Mass Index 31.13 10/10/2021 12:44 PM EST Plan of Treatment Health Maintenance Due Date Last Done Comments Depression Screening 1979 Tobacco Screening 1979 Adult BMI Screening 12/01/1985 DTaP,Tdap and Td Vaccines (1 - Tdap) 12/01/1986 Zoster (Shingles) Vaccine (1 of 2) 12/01/2017 COVID-19 Vaccine (3 - season) 2024, 11/02/2020 Influenza Vaccine 04/04/2025 Medical Devices Not on file Insurance [employer] Care Teams Vest Maker Relationship Specialty Start Date End Date Fredi Skinner MD PCP - General Family Medicine 10/02/21
--- OUTSIDE RECORDS SUMMARY | 2025-01-27 08:23 | XMS_ITS | Patient Health Record ---
Author Organization [facility] in [place] Address [address] [place] [address] Care Team Providers Care Pattern Room Attendant Name Role Phone Susanne Stephon Primary Care Provider Allergies No Known Allergies Reason For Referral Reason screening colonoscop y Diagnosis 1 Well adult (Z00.00) Referral Organization [facility] Referring Provider First Name Stephon Referring Provider Last Name Susanne Referring Provider Speciality Family Med cherelle Referred Provider Justin Jacobson Referred Provider Specialty General Surg alton Referral Priority Routine Medications Medication SIG (Take, Route, Frequency, Duration) [...] Question Answer Notes Patient is a nonsmoker Alcohol Screen (Audit-C) Question Answer Notes Did you have a drink contain ing alcohol in the past year? Yes How often did you have 6 or more drinks on one occasion in the past year? Never (0 point) How many drinks did you have on a typical day when you were drinking in the past year? 1 or 2 drinks (0 point) How often did you have a dri nk containing alcohol in the past year? Monthly (2 points) Points 2 Interpretation Negative Problems Problem Type SNOMED Code ICD Code Onset Dates Problem Status W/U Status Risk Notes Problem Right upper quadrant pain (888740059) Right upper quadrant pain (R10.11) Active confirmed Problem Well adult (160313892) Well adult (Z00.00) Active confirmed Problem Acute bronchiolitis (2409471) Acute bronchiolitis (J21.9) Active confirmed Problem Essential hypertension (11594544) Essential Hypertension (I10) Active confirmed Vital Signs Blood pressure diastolic 82 mm Hg 11/11/2024 Height 70 in 11/11/2024 Blood pressure systolic 108 mm Hg 11/11/2024 Weight 207.8 lbs 11/11/2024 BMI 29.81 kg/m2 11/11/2024 Encounters Encounter Location Date Provider Diagnosis [facility] [address] [place] [address] 10/12/[address] [facility] [address] [place] [address] 11/11/2024 Stephon Skinner Well adult Z00.0 0 Assessments Encounter Date Diagnosis (ICD Code) Assessment Notes Treatment Notes Treatment Clinical Notes Section Notes 11/11/2024 Well adult (ICD-10 - Z00.00) Plan Of Treatment Pending Test Test Name Order Date CMP (COMPLETE METABOLIC PANEL) 3 HEMOGLOBIN A1C (GLYCO) 11/11/2024 LIPID PANEL (CHOL/TRIG/HDL/LDL) 11/12/19 25 PSA, PROSTATE-SPECIFIC ANTIGEN 3 NM Gallbladder w/ Stimulation 08/15/2023 CBC AUTO DIFF 07/07/2023 GLYCOHEMOGLOBIN A1C 07/07/2023 LIPID PROFILE 07/07/2023 THYROID PANEL (T4/TSH/FREE T3) 5 PSA, SCREENING 11/11/2024 CMP (COMP MET WILKINS) w/eGFR CKD-EPI 2024 CBC WITH DIFF 11/11/2024 Insurance Providers Payer Name Payer Address Payer Phone Subscriber Number Group Number Insured Name Patient Relationship to Insured Coverage Start Date Coverage End Date [employer] [address] [address] [place] [phone] [id number] Jadon Russo Self - patient is the insured Medical (General) History Surgical History Surgery Date(Month/Year) Knee Repair- Right Hernia Repair Vasectomy
--- OUTSIDE RECORDS SUMMARY | 2025-01-27 08:31 | XMS_ITS | CCD ---
Author Organization [facility] Care Team Providers Care Plug And Mold Finisher Name Role Phone LUIS FELIPE, DR LAM Admitting Unavailable HOY, DR LAM Attending Unavailable HOY, DR LAM Primary Care Unavailable HOY, DR LAM Consulting Unavailable HOY, DR LAM Admitting Unavailable HOY, DR LAM Attending Unavailable HOY, DR LAM Primary Care Unavailable HOY, DR LAM Consulting Unavailable HOY, DR LAM Admitting Unavailable HOY, DR LAM Attending Unavailable HOY, DR LAM Primary Care Unavailable KECIAY, DR LAM Consulting Unavailable WEST, DR FAYE Gooden Consulting [...] Test Name Value Interpretation Reference Range Facility Provider Letteron 11-23-2024 Provider Letter Provider Letter November 23, 2024 YASMEEN RUSSO [address] [place] [address] : 1965 Dear Mr. Russo, We have been trying to reach you with no success regarding a referral from Dr Briscoe. It is important that you return our call upon receiving this letter. Also, at the time of your call, please provide us with your current information. Thank you for your prompt attention to this matter. Sincerely, [facility] General Surgery [phone] Normal [facility] INSULINon 07-12-2022 Insulin 7.4 uIU/mL Normal 2.6-24.9 [facility] Comment on above: Performed By: #### I NSULIN #### [facility] [address] [place] [address] Dr. Aparna Teran CBC AUTO DIFFon 07-11-2022 BASO # 0.0 103/ul Normal 0.0-0.1 [facility] Comment on above: Performed By: #### C BC #### [facility] [address] [place] [address] Dr. Aparna Teran Basophils/100 WBC (Bld) 0.5 % Normal 0.2-2.0 [facility] Comment on above: Performed By: #### C BC #### [facility] [address] [place] [address] Dr. Aparna Teran EO # 0.1 103/ul Normal 0.0-0.7 [facility] Comment on above: Performed By: #### C BC #### [facility] [address] [place] [address] Dr. Aparna Teran Eosinophils/100 WBC (Bld) 1.4 % Normal 0.9-7.0 [facility] Comment on above: Performed By: #### C BC #### [facility] [address] [place] [address] Dr. Aparna Teran Erythrocyte distribution width (RBC) [Ratio] 12.6 % Normal 11.0-15.0 [facility] Comment on above: Performed By: #### C BC #### [facility] [address] [place] [address] Dr. Aparna Teran Hematocrit (Bld) [Volume fraction] 45.2 % Normal 42.0-54.0 [facility] Comment on above: Performed By: #### C BC #### [facility] [address] [place] [address] Dr. Aparna Teran Hemoglobin (Bld) [Mass/Vol] 15.6 g/dL Normal 14.0-18.0 [facility] Comment on above: Performed By: #### C BC #### [facility] [address] [place] [address] Dr. Aparna Teran IG # 0.02 10e3/ul Normal 0.00-0.03 [facility] Comment on above: Performed By: #### C BC #### [facility] [address] [place] [address] Dr. Aparna Teran IG % 0.3 % Normal 0.0-0.5 [facility] Comment on above: Performed By: #### C BC #### [facility] [address] [place] [address] Dr. Aparna Teran LYMPH # 1.6 103/ul Normal 1.2-3.8 [facility] Comment on above: Performed By: #### C BC #### [facility] [address] [place] [address] Dr. Aparna Teran Lymphocytes/100 WBC (Bld) 25.0 % Normal 20.5-60.0 [facility] Comment on above: Performed By: #### C BC #### [facility] [address] [place] [address] Dr. Aparna Teran MANUAL DIFF REQ NO Normal [facility] Comment on above: Performed By: #### C BC #### [facility] [address] [place] [address] Dr. Aparna Teran MCH (RBC) [Entitic mass] 29.3 pg Normal 25.9-34.0 [facility] Comment on above: Performed By: #### C BC #### [facility] [address] [place] [address] Dr. Aparna Teran MCHC (RBC) [Mass/Vol] 34.5 g/dL Normal 29.9-35.2 [facility] Comment on above: Performed By: #### C BC #### [facility] [address] [place] [address] Dr. Aparna Teran MCV (RBC) [Entitic vol] 84.8 fL Normal 80.0-94.0 [facility] Comment on above: Performed By: #### C BC #### [facility] [address] [place] [address] Dr. Aparna Teran MONO # 0.4 103/ul Normal 0.3-0.8 [facility] Comment on above: Performed By: #### C BC #### [facility] [address] [place] [address] Dr. Aparna Teran Monocytes/100 WBC (Bld) 6.6 % Normal 1.7-12.0 [facility] Comment on above: Performed By: #### C BC #### [facility] [address] [place] [address] Dr. Aparna Teran NEUT # 4.2 103/ul Normal 1.4-6.5 [facility] Comment on above: Performed By: #### C BC #### [facility] [address] [place] [address] Dr. Aparna Teran Neutrophils/100 WBC (Bld) 66.2 % Normal 43.0-75.0 [facility] Comment on above: Performed By: #### C BC #### [facility] [address] [place] [address] Dr. Aparna Teran Platelet mean volume (Bld) [Entitic vol] 9.9 fL Normal 9.5-13.5 [facility] Comment on above: Performed By: #### C BC #### [facility] [address] [place] [address] Dr. Aparna Teran PLT 205 103/ul Normal 150-450 [facility] Comment on above: Performed By: #### C BC #### [facility] [address] [place] [address] Dr. Aparna Teran RBC 5.33 106/ul Normal 4.70-6.10 [facility] Comment on above: Performed By: #### C BC #### [facility] [address] [place] [address] Dr. Aparna Teran WBC 6.4 103/ul Normal 4.0-11.0 [facility] Comment on above: Performed By: #### C BC #### [facility] [address] [place] [address] Dr. Aparna Teran GLYCOHEMOGLOBIN A1Con 2021 ADA RECOMMENDATION SEE BELOW Normal [facility] Comment on above: Result Comment: ADA RECOMMENDED LIMIT 4.0 - 6.0 ADA THERAPEUTIC TARGET < 7.0 ACTION SUGGESTED > 7.0 Performed By: #### A 1C #### [facility] [address] [place] [address] Dr. Aparna Teran Glucose [Mass/Vol] 117 mg/dL Normal [facility] Comment on above: Performed By: #### A 1C #### [facility] [address] [place] [address] Dr. Aparna Teran HbA1c (Bld) [Mass fraction] 5.7 % Normal 4.5-6.2 [facility] Comment on above: Performed By: #### A 1C #### [facility] [address] [place] [address] Dr. Aparna Teran LIPID PROFILEon 07-11-2022 CHOL-HDL RATIO NORM SEE BELOW Normal [facility] Comment on above: Result Comment: 3.3 - 4.4 LOW RISK 4.4 - 7.1 AVERAGE RISK 7.1 - 11.0 MODERATE RISK >11.0 HIGH RISK Performed By: #### L IPID, CMP #### [facility] [address] [address] [address] Aparna Teran Cholesterol [Mass/Vol] 168 mg/dL Normal <=200 [facility] Comment on above: Performed By: #### L IPID, CMP #### [facility] [address] [place] [address] Dr. Aparna Teran Cholesterol in HDL [Mass/Vol] 40 mg/dL Normal 40-60 [facility] Comment on above: Performed By: #### L IPID, CMP #### [facility] [address] [address] [address] Aparna Teran Cholesterol in LDL [Mass/Vol] 106.6 mg/dL Normal [facility] Comment on above: Performed By: #### L IPID, CMP #### [facility] [address] [address] [address] Aparna Teran Cholesterol.total/Ch olesterol in HDL [Mass ratio] 4.2 {ratio} Normal [facility] Comment on above: Performed By: #### L IPID, CMP #### [facility] [address] [address] [address] Aparna Teran HDL NORMAL > or = 60 mg/dl - LOW CARDIOVASCULAR RISK <40 mg/dl - HIGH CARDIOVASCULAR RISK Normal [facility] Comment on above: Performed By: #### L IPID, CMP #### [facility] [address] [place] [address] Dr. Aparna Teran LDL CALC NORMAL SEE BELOW Normal [facility] Comment on above: Result Comment: <100 mg/dl OPTIMAL 100 - 129 mg/dl NEAR OR ABOVE OPTIMAL 130 - 159 mg/dl BORDERLINE HIGH 160 - 189 mg/dl HIGH >190 mg/dl VERY HIGH Performed By: #### L IPID, CMP #### [facility] [address] [place] [address] Dr. Aparna Teran Triglyceride [Mass/Vol] 107 mg/dL Normal <=150 [facility] Comment on above: Performed By: #### L IPID, CMP #### [facility] [address] [place] [address] Dr. Aparna Teran VLDL CALC 21.4 mg/dL Normal [facility] Comment on above: Performed By: #### L IPID, CMP #### [facility] [address] [place] [address] Dr. Aparna Teran PROF 14(COMP METB)on 022 Albumin [Mass/Vol] 3.8 g/dL Normal 3.4-5.0 [facility] Comment on above: Performed By: #### L IPID, CMP #### [facility] [address] [address] [address] Aparna Teran Albumin/Globulin [Mass ratio] 1.1 {ratio} Normal [facility] Comment on above: Performed By: #### L IPID, CMP #### [facility] [address] [address] [address] Aparna Teran ALP [Catalytic activity/Vol] 100 U/L Normal 46-116 [facility] Comment on above: Performed By: #### L IPID, CMP #### [facility] [address] [address] [address] Aparna Teran ALT [Catalytic activity/Vol] 35 U/L Normal 16-63 [facility] Comment on above: Performed By: #### L IPID, CMP #### [facility] [address] [address] [address] Aparna Teran Anion gap [Moles/Vol] 9.2 mmol/L Normal [facility] Comment on above: Performed By: #### L IPID, CMP #### [facility] [address] [address] [address] Aparna Teran AST [Catalytic activity/Vol] 24 U/L Normal 15-37 [facility] Comment on above: Performed By: #### L IPID, CMP #### [facility] [address] [address] [address] Aparna Teran Bilirubin [Mass/Vol] 0.6 mg/dL Normal 0.2-1.0 [facility] Comment on above: Performed By: #### L IPID, CMP #### [facility] [address] [address] [address] Aparna Teran Calcium [Mass/Vol] 8.9 mg/dL Normal 8.5-10.1 [facility] Comment on above: Performed By: #### L IPID, CMP #### [facility] [address] [address] [address] Aparna Teran Chloride [Moles/Vol] 103 mmol/L Normal 98-107 [facility] Comment on above: Performed By: #### L IPID, CMP #### [facility] [address] [address] [address] Aparna Teran CO2 [Moles/Vol] 29.0 mmol/L Normal 21.0-32.0 [facility] Comment on above: Performed By: #### L IPID, CMP #### [facility] [address] [address] [address] Aparna Teran Creatinine [Mass/Vol] 1.13 mg/dL Normal 0.70-1.30 [facility] Comment on above: Performed By: #### L IPID, CMP #### [facility] [address] [address] [address] Aparna Teran EGFR-AF SERBIAN >60 Normal >=60 [facility] Comment on above: Performed By: #### L IPID, CMP #### [facility] [address] [place] [address] Dr. Aparna Teran EGFR-NON AF SERBIAN >60 Normal >=60 [facility] Comment on above: Performed By: #### L IPID, CMP #### [facility] [address] [address] [address] Aparna Teran Globulin (S) [Mass/Vol] 3.4 g/dL Normal [facility] Comment on above: Performed By: #### L IPID, CMP #### [facility] [address] [address] [address] Aparna Teran Glucose [Mass/Vol] 102 mg/dL Normal 74-106 [facility] Comment on above: Performed By: #### L IPID, CMP #### [facility] [address] [address] [address] Aparna Teran Potassium [Moles/Vol] 4.2 mmol/L Normal 3.5-5.1 [facility] Comment on above: Performed By: #### L IPID, CMP #### [facility] [address] [address] [address] Aparna Teran Protein [Mass/Vol] 7.2 g/dL Normal 6.4-8.2 [facility] Comment on above: Performed By: #### L IPID, CMP #### [facility] [address] [address] [address] Aparna Teran Sodium [Moles/Vol] 137 mmol/L Normal 136-145 [facility] Comment on above: Performed By: #### L IPID, CMP #### [facility] [address] [address] [address] Aparna Teran Urea nitrogen [Mass/Vol] 22.0 mg/dL Critically high 7.0-18.0 [facility] Comment on above: Performed By: #### L IPID, CMP #### [facility] [address] [address] [address] Aparna Teran Urea nitrogen/Creatinine [Mass ratio] 19.5 mg/mg Normal [facility] Comment on above: Performed By: #### L IPID, CMP #### [facility] [address] [place] [address] Dr. Aparna Teran MRI KNEE RT WO [...] FAYE ARAUZ Date: 2021-08-28 07:15 Normal [facility] Covid-19 PCR (CVDTBH)on 07-05 SARS-CoV-2 (COVID-19) RNA LAUREN+probe Ql (Unsp spec) Detected Critically abnormal NOT DETECTED [facility] Comment on above: Result Comment: This test is not yet approved or cleared by the [place] FDA. When there are no FDA-approved or cleared tests available, and other criteria are met, FDA can make tests available under an emergency access mechanism called an Emergency Use Authorization (EUA). The EUA for this test is supported by the File Clerk Data Entry of Health and Human Service's (HHS's) declaration [...] longer be used). Performed By: #### [facility] #### [facility] [address] [place] [address] Dr. Aparna Teran Encounters Encounter Date Encounter Type Care Provider Facility Start: 07-15-2022 Encounter for genera l adult medical examination without abnormal findings DR CAROLE BRISCOE [facility] Start: 07-11-2022 End: 07-12-[address] CAROLE [...] Comment on above: Performed By: #### P SAS #### [facility] [address] [place] [address] Dr. Aparna Teran Payers Date Payer Category Payer Unknown [id number] [id number] [id number] 1965 Unknown [id number] [id number] [id number] 1965 Unknown [id number] [id number] [id number] 1957 Unknown [id number] Summary Purpose Family History No Family History Records FoundNo Family History Records Found Advance Directives No Advanced Directives Records FoundNo Advanced Directives Records Found Additional Source Comments (unrecognized sect ion and content) No Status Records FoundNo Status Records Found INFORMATION SOURCE (unrecogn ized section and content) DATE CREATED AUTHOR 07/16/2022 [facility] DATE CREATED AUTHOR AUTHOR'S ABHIJEET LOPEZ 11/24/2024 [facility] FOR RECORDS PERTAINING TO PATIENTS WHO [...] BE BASED ON THE PRIMARY CLINICAL RECORDS. [facility] [employer] provides no warranty or guarantee of the accuracy or completeness of information in this document.
[2025-01-27 09:08] LABS: Basophils Percent Auto 0.5 % (0.2-2.0); Eosinophils Absolute Auto 0.1 10^3/uL (0.0-0.7); Eosinophils Percent Auto 1.9 % (0.9-7.0); Hemoglobin 15.6 g/dL (14.0-18.0); Immature Granulocytes Abs Auto 0.01 10^3/uL (0.00-0.03); Immature Granulocytes Pct Auto 0.2 % (0.0-0.5); Lymphocytes Absolute Auto 1.3 10^3/uL (1.2-3.8); Lymphocytes Percent Auto 20.8 % (20.5-60.0); Mean Corpuscular HGB Conc 34.7 g/dL (29.9-35.2); Mean Corpuscular Hemoglobin 29.7 pg (25.9-34.0); Mean Corpuscular Volume 85.7 fL (80.0-94.0); Mean Platelet Volume 9.9 fL (9.5-13.5); Monocytes Absolute Auto 0.5 10^3/uL (0.3-0.8); Monocytes Percent Auto 7.9 % (1.7-12.0); Neutrophils Absolute Auto 4.4 10^3/uL (1.4-6.5); Neutrophils Percent Auto 68.7 % (43.0-75.0); Platelet Count 205 10^3/uL (150-450); Red Blood Count 5.25 10^6/uL (4.70-6.10); Red Cell Distribution Width 12.4 % (11.0-15.0); White Blood Count 6.4 10^3/uL (4.0-11.0)
[2025-01-27 10:54] LABS: Alanine Aminotransferase 42 U/L (16-63); Albumin Globulin Ratio 1.1; Albumin Level 3.7 g/dL (3.4-5.0); Alkaline Phosphatase 93 U/L (46-116); Anion Gap 10.7; Aspartate Amino Transferase 22 U/L (15-37); BUN Creatinine Ratio 17.3; Bilirubin Total 0.6 mg/dL (0.2-1.0); Calcium 8.7 mg/dL (8.5-10.1); Carbon Dioxide 28.4 mmol/L (21.0-32.0); Chloride 105 mmol/L (98-107); Chol HDL Ratio 4.3; Cholesterol 164 mg/dL (<=200); Estimated GFR (African America >60 (>=60 mL/min/1.73m^2); Estimated GFR (Non-African Ame >60 (>=60 mL/min/1.73m^2); Free T3 3.06 pg/mL (2.18-3.98); Globulin 3.4 g/dL; Glucose 98 mg/dL (74-106); HDL Cholesterol 38 mg/dL (40-60); Potassium 4.1 mmol/L (3.5-5.1); Sodium 140 mmol/L (136-145); Thyroid Stimulating Hormone 3.434 uIU/mL (0.358-3.740); Total Protein 7.1 g/dL (6.4-8.2); Triglycerides 123 mg/dL (<=150); VLDL CHOLESTEROL 24.6 mg/dL
[2025-01-27 10:58] LABS: Prostate Specific Antigen Scrn 1.99 ng/mL (<=4.00)
[2025-01-27 10:59] LABS: Estimated Average Glucose 120 mg/dL; Glycohemoglobin A1C 5.8 % (4.5-6.2)
== END 2025-01-27 08:17 | disposition home or self-care (01) ==
LOC: LAB 08:20
PROVIDERS: PCP Family Medicine; Visit Provider Family Medicine
DX: Z00.00 Encounter for general adult medical examination without abnormal findings (principal)
CPT/HCPCS: 36415; 80053; 80061; 83036; 84436; 84443; 84481; 85025; G0103

== ENCOUNTER 2025-04-20 10:51 | Outpatient (OUT) | payer OTHER, SELFPAY ==
--- OUTSIDE RECORDS SUMMARY | 2025-04-20 10:55 | XMS_ITS | Clinical Summary ---
Author Organization Coll[facility] Address [id number] [address] [place] [address] Care Team Providers Care Studio Technician Video Operator Name Role Phone Fredi Skinner MD Primary Care Provider [phone] Allergies No known active allergies Medications pravastatin [...] of 2) 12/01/2017 COVID-19 Vaccine (3 - 2024- season) 2025, 11/02/2020 Influenza Vaccine 04/04/2025 [employer] Devices Not on file Insurance [employer] Care Teams Studio Technician Video Operator Relationship Specialty Start Date End Date Fredi Skinner MD PCP - General Family Medicine 10/02/21
--- OUTSIDE RECORDS SUMMARY | 2025-04-20 10:55 | XMS_ITS | Patient Health Record ---
Author Organization [facility] [place] Address [address] [place] [address] Care Team Providers Care Healthcare Management Consultant Name Role Phone Stephon Skinner Primary Care Provider [phone] Allergies No Known Allergies Results Component Value Reference Range Notes CBC AUTO DIFF Reviewed date:01/27/2025 06:59:47 PM Interpretation: Performing Lab: Notes/Report: [facility] , White Blood Count 6.4 4.0-11.0 10 3/uL Red Blood Count 5.25 4.70-6.10 10 6/uL Hemoglobin 15.6 14.0-18.0 g/dL Hematocrit 45.0 42.0-54.0 % Mean Corpuscular Volume 85.7 80.0-94.0 fL Mean Corpuscular Hemoglobin 29.7 25.9-34.0 pg Mean Corpuscular HGB Conc 34.7 29.9-35.2 g/dL Red Cell Distribution Width 12.4 11.0-15.0 % Platelet Count 205 150-450 10 3/uL Mean Platelet Volume 9.9 9.5-13.5 fL Neutrophils Percent Auto 68.7 43.0-75.0 % Lymphocytes Percent Auto 20.8 20.5-60.0 % Monocytes Percent Auto 7.9 1.7-12.0 % Eosinophils Percent Auto 1.9 0.9-7.0 % Basophils Percent Auto 0.5 0.2-2.0 % Immature Granulocytes Pct Auto 0.2 0.0-0.5 % Neutrophils Absolute Auto 4.4 1.4-6.5 10 3/uL Lymphocytes Absolute Auto 1.3 1.2-3.8 10 3/uL Monocytes Absolute Auto 0.5 0.3-0.8 10 3/uL Eosinophils Absolute Auto 0.1 0.0-0.7 10 3/uL Basophils Absolute Auto 0.0 0.0-0.1 10 3/uL Immature Granulocytes Abs Auto 0.01 0.00-0.03 10 3/uL Performing Lab: see note ML - [facility] FREE T3 Reviewed date:01/27/2025 06:59:47 PM Interpretation: Performing Lab: Notes/Report: [facility] , Free T3 3.06 2.18-3.98 pg/mL Performing Lab: see note ML - [facility] GLYCOHEMOGLOBIN A1C Reviewed date:01/27/2025 06:59:47 PM Interpretation: Performing Lab: Notes/Report: [facility] , Glycohemoglobin A1C 5.8 4.5-6.2 % ADA RECOMMENDED LIMIT 4.0 - 6.0 ADA THERAPEUTIC TARGET < 7.0 ACTION SUGGESTED > 7.0 Estimated Average Glucose 120 Performing Lab: see note ML - [facility] LB LIPID PROFILE Reviewed date:01/27/2025 06:59:47 PM Interpretation: Performing Lab: Notes/Report: [facility] , Triglycerides 123 <=150 mg/dL Cholesterol 164 <=200 mg/dL HDL Cholesterol 38 40-60 mg/dL > or =60 mg/dl - LOW CARDIOVASCULAR RISK <40 mg/dl - HIGH CARDIOVASCULAR RISK LDL Cholesterol Calculated 102.0 <100 mg/dl OPTIMAL 100-129 mg/dl NEAR OR ABOVE OPTIMAL 130-159 mg/dl BORDERLINE HIGH 160-189 mg/dl HIGH >190 mg/dl VERY HIGH VLDL CHOLESTEROL 24.6 Chol HDL Ratio 4.3 3.3 - 4.4 LOW RISK 4.4 - 7.1 AVERAGE RISK 7.1 - 11.0 MODERATE RISK >11.0 HIGH RISK Performing Lab: see note ML - [facility] LB PROF 14(COMP METB) Reviewed date:01/27/2025 06:59:47 PM Interpretation: Performing Lab: Notes/Report: [facility] , Sodium 140 136-145 mmol/L Potassium 4.1 3.5-5.1 mmol/L Chloride 105 98-107 mmol/L Carbon Dioxide 28.4 21.0-32.0 mmol/L Anion Gap 10.7 Glucose 98 74-106 mg/dL Blood Urea Nitrogen 19.0 7.0-18.0 mg/dL Creatinine 1.10 0.70-1.30 mg/dL Estimated GFR ( Geeta >60 >=60 mL/min/1.73m 2 Estimated GFR (Non- Peri >60 >=60 mL/min/1.73m 2 BUN Creatinine Ratio 17.3 Calcium 8.7 8.5-10.1 mg/dL Bilirubin Total 0.6 0.2-1.0 mg/dL Aspartate Amino Transferase 22 15-37 U/L Alanine Aminotransferase 42 16-63 U/L Alkaline Phosphatase 93 46-116 U/L Total Protein 7.1 6.4-8.2 g/dL Albumin Level 3.7 3.4-5.0 g/dL Globulin 3.4 Albumin Globulin Ratio 1.1 Performing Lab: see note ML - [facility] LB PSA SCREENING Reviewed date:01/27/2025 06:59:47 PM Interpretation: Performing Lab: Notes/Report: [facility] , Prostate Specific Antigen Scrn 1.99 <=4.00 ng/mL Performing Lab: see note ML - [facility] LB T4 Reviewed date:01/27/2025 06:59:47 PM Interpretation: Performing Lab: Notes/Report: [facility] , T4 Thyroxine 5.60 4.50-12.10 ug/dL Performing Lab: see note ML - [facility] LB TSH Reviewed date:01/27/2025 06:59:47 PM Interpretation: Performing Lab: Notes/Report: [facility] , Thyroid Stimulating Hormone 3.434 0.358-3.740 u IU/mL Performing Lab: see note ML - [facility] LB Reason For Referral Reason screening colonoscop y Diagnosis 1 Well adult (Z00.00) Referral Organization [facility] Referring Provider First Name Stephon Referring Provider Last Name Susanne Referring Provider Speciality Family Med cherelle Referred Provider Justin Jacobson Referred Provider Specialty General Surg [place] Referral Priority Routine Medications Medication SIG (Take, Route, Frequency, Duration) Notes Start Date End Date Status Lisinopril 20 MG 2 tablets Oral once daily; Duration: 90 days Active Pravastatin Sodium 40 MG 1 tablet Orally Once a day; Duration: 30 days 07/07/2023 Active Social History Tobacco [...] Monthly (2 points) Points 2 Interpretation Negative AUDIT-C (Standard) Question Answer Notes Did you have a drink containing alcohol in the p ast year? No Points 0 Interpretation Negative Problems Problem Type SNOMED Code ICD Code Onset Dates Problem Status W/U Status Risk Notes Problem Right upper quadrant pain (197138808) Right upper quadrant pain (R10.11) Active confirmed Problem Well adult (753021376) Well adult (Z00.00) Active confirmed Problem Chest wall pain (419261124) Chest wall pain (R07.89) Active confirmed Problem Acute bronchiolitis (4780564) Acute bronchiolitis (J21.9) Active confirmed Problem Essential hypertension (66885298) Essential Hypertension (I10) Active confirmed Vital Signs Blood pressure diastolic 74 mm Hg 04/20/2025 Height 70 in 04/20/2025 Blood pressure systolic 112 mm Hg 04/20/2025 Weight 208 lbs 04/20/2025 BMI 29.84 kg/m2 04/20/2025 Encounters Encounter Location Date Provider Diagnosis [facility] [address] [place] [address] 04/20/2025 Stephon Bassy Chest wall pain R07. 89 [facility] [address] [place] [address] 11/11/2024 Stephon Kaliy Well adult Z00.00 [facility] [address] [place] [address] 10/12/[address] [facility] [address] [place] [address] 01/27/2025 Stephon Skinner Assessments Encounter Date Diagnosis (ICD Code) Assessment Notes Treatment Notes Treatment Clinical Notes Section Notes 11/11/2024 Well adult (ICD-10 - Z00.00) 04/20/2025 Chest wall pain (ICD-10 - R07.89) Plan Of Treatment Pending Test Test Name Order Date CMP (COMPLETE METABOLIC PANEL) 3 HEMOGLOBIN A1C (GLYCO) 11/11/2024 LIPID PANEL (CHOL/TRIG/HDL/LDL) 11/12/19 25 PSA, PROSTATE-SPECIFIC ANTIGEN 3 NM Gallbladder w/ Stimulation 08/15/2023 CBC AUTO DIFF 07/07/2023 GLYCOHEMOGLOBIN A1C 07/07/2023 LIPID PROFILE 07/07/2023 XR CHEST 2 V 04/20/2025 THYROID PANEL (T4/TSH/FREE T3) 5 PSA, SCREENING 11/11/2024 XR ribs RT 2V 04/20/2025 CMP (COMP MET WILKINS) w/eGFR CKD-EPI 2024 CBC WITH DIFF 11/11/2024 Insurance Providers Payer Name Payer Address Payer Phone Subscriber Number Group Number Insured Name Patient Relationship to Insured Coverage Start Date Coverage End Date [employer] [address] [address] [place] [address] [id number] Jadon Russo Self - patient is the insured Medical (General) History Surgical History Surgery Date(Month/Year) Vasectomy Knee Repair- Right Hernia Repair
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
--- OUTSIDE RECORDS SUMMARY | 2025-04-20 11:01 | XMS_ITS | CCD ---
Author Organization [facility] Care Team Providers Care Web Interface Developer Name Role Phone LUIS FELIPE, DR LAM [...] YASMEEN RUSSO [address] [place] [address] : 1965 Dear Mr. Russo, We have been trying to reach you with no success regarding a referral from Dr Briscoe. It is important that you return our call upon receiving this letter. Also, at the time of your call, please provide us with your current information. Thank you for your prompt attention to this matter. Sincerely, [facility] General Surgery [phone] Normal [facility] INSULINon 07-12-2022 Insulin 7.4 uIU/mL Normal 2.6-24.9 The [facility] Comment on above: Performed By: #### I NSULIN #### [facility] [address] [place] [address] Dr. Aparna Teran CBC AUTO DIFFon 07-11-2022 BASO # 0.0 103/ul Normal 0.0-0.1 [facility] Comment on above: Performed By: #### C BC #### [facility] [address] [place] [address] Dr. Aparna Teran Basophils/100 WBC (Bld) 0.5 % Normal 0.2-2.0 [facility] Comment on above: Performed By: #### C BC #### [facility] [address] [place] [address] Dr. Aparna Teran EO # 0.1 103/ul Normal 0.0-0.7 [facility] Comment on above: Performed By: #### C BC #### [facility] [address] [place] [address] Dr. Aparna Teran Eosinophils/100 WBC (Bld) 1.4 % Normal 0.9-7.0 [facility] Comment on above: Performed By: #### C BC #### [facility] [address] [place] [address] Dr. Aparna Teran Erythrocyte distribution width (RBC) [Ratio] 12.6 % Normal 11.0-15.0 [facility] Comment on above: Performed By: #### C BC #### [facility] [address] [place] [address] Dr. Aparna Teran Hematocrit (Bld) [Volume fraction] 45.2 % Normal 42.0-54.0 [facility] Comment on above: Performed By: #### C BC #### [facility] [address] [place] [address] Dr. Aparna Teran Hemoglobin (Bld) [Mass/Vol] 15.6 g/dL Normal 14.0-18.0 [facility] Comment on above: Performed By: #### C BC #### [facility] [address] [place] [address] Dr. Aparna Teran IG # 0.02 10e3/ul Normal 0.00-0.03 [facility] Comment on above: Performed By: #### C BC #### [facility] [address] [place] [address] Dr. Aparna Teran IG % 0.3 % Normal 0.0-0.5 [facility] Comment on above: Performed By: #### C BC #### [facility] [address] [place] [address] Dr. Aparna Teran LYMPH # 1.6 103/ul Normal 1.2-3.8 [facility] Comment on above: Performed By: #### C BC #### [facility] [address] [place] [address] Dr. Aparna Teran Lymphocytes/100 WBC (Bld) 25.0 % Normal 20.5-60.0 [facility] Comment on above: Performed By: #### C BC #### [facility] [address] [place] [address] Dr. Aparna Teran MANUAL DIFF REQ NO Normal [facility] Comment on above: Performed By: #### C BC #### [facility] [address] [place] [address] Dr. Aparna Teran MCH (RBC) [Entitic mass] 29.3 pg Normal 25.9-34.0 [facility] Comment on above: Performed By: #### C BC #### [facility] [address] [place] [address] Dr. Aparna Teran MCHC (RBC) [Mass/Vol] 34.5 g/dL Normal 29.9-35.2 [facility] Comment on above: Performed By: #### C BC #### [facility] [address] [place] [address] Dr. Aparna Teran MCV (RBC) [Entitic vol] 84.8 fL Normal 80.0-94.0 [facility] Comment on above: Performed By: #### C BC #### [facility] [address] [place] [address] Dr. Aparna Teran MONO # 0.4 103/ul Normal 0.3-0.8 [facility] Comment on above: Performed By: #### C BC #### [facility] [address] [place] [address] Dr. Aparna Teran Monocytes/100 WBC (Bld) 6.6 % Normal 1.7-12.0 [facility] Comment on above: Performed By: #### C BC #### [facility] [address] [place] [address] Dr. Aparna Teran NEUT # 4.2 103/ul Normal 1.4-6.5 [facility] Comment on above: Performed By: #### C BC #### [facility] [address] [place] [address] Dr. Apanra Teran Neutrophils/100 WBC (Bld) 66.2 % Normal 43.0-75.0 [facility] Comment on above: Performed By: #### C BC #### [facility] [address] [place] [address] Dr. Aparna Teran Platelet mean volume (Bld) [Entitic vol] 9.9 fL Normal 9.5-13.5 [facility] Comment on above: Performed By: #### C BC #### [facility] [address] [place] [address] Dr. Aparna Teran PLT 205 103/ul Normal 150-450 [facility] Comment on above: Performed By: #### C BC #### [facility] [address] [place] [address] Dr. Aparna Teran RBC 5.33 106/ul Normal 4.70-6.10 [facility] Comment on above: Performed By: #### C BC #### [facility] [address] [place] [address] Dr. Aparna Teran WBC 6.4 103/ul Normal 4.0-11.0 [facility] Comment on above: Performed By: #### C BC #### [facility] [address] [place] [address] Dr. Aparna Teran GLYCOHEMOGLOBIN A1Con 2021 ADA RECOMMENDATION SEE BELOW Normal [facility] Comment on above: Result Comment: ADA RECOMMENDED LIMIT 4.0 - 6.0 ADA THERAPEUTIC TARGET < 7.0 ACTION SUGGESTED > 7.0 Performed By: #### A 1C #### [facility] [address] [place] [address] Dr. Aparna Teran Glucose [Mass/Vol] 117 mg/dL Normal [facility] Comment on above: Performed By: #### A 1C #### [facility] [address] [place] [address] Dr. Aparna Teran HbA1c (Bld) [Mass fraction] 5.7 % Normal 4.5-6.2 [facility] Comment on above: Performed By: #### A 1C #### [facility] [address] [place] [address] Dr. Aparna Teran LIPID PROFILEon 07-11-2022 CHOL-HDL RATIO NORM SEE BELOW Normal [facility] Comment on above: Result Comment: 3.3 - 4.4 LOW RISK 4.4 - 7.1 AVERAGE RISK 7.1 - 11.0 MODERATE RISK >11.0 HIGH RISK Performed By: #### L IPID, CMP #### [facility] [address] [place] [address] [address] Aparna Teran Cholesterol [Mass/Vol] 168 mg/dL Normal <=200 [facility] Comment on above: Performed By: #### L IPID, CMP #### [facility] [address] [place] [address] Dr. Aparna Teran Cholesterol in HDL [Mass/Vol] 40 mg/dL Normal 40-60 [facility] Comment on above: Performed By: #### L IPID, CMP #### [facility] [address] [place] [place] [address] [address] Aparna Teran Cholesterol in LDL [Mass/Vol] 106.6 mg/dL Normal [facility] Comment on above: Performed By: #### L IPID, CMP #### [facility] [address] [place] [address] [address] Aparna Teran Cholesterol.total/Ch olesterol in HDL [Mass ratio] 4.2 {ratio} Normal [facility] Comment on above: Performed By: #### L IPID, CMP #### [facility] [address] [place] [place] [address] [address] Aparna Teran HDL NORMAL > or = 60 mg/dl - LOW CARDIOVASCULAR RISK <40 mg/dl - HIGH CARDIOVASCULAR RISK Normal [facility] Comment on above: Performed By: #### L IPID, CMP #### [facility] [address] [place] [address] Dr. Aparna Teran LDL CALC NORMAL SEE BELOW Normal [facility] Comment on above: Result Comment: <100 mg/dl OPTIMAL 100 - 129 mg/dl NEAR OR ABOVE OPTIMAL 130 - 159 mg/dl BORDERLINE HIGH 160 - 189 mg/dl HIGH >190 mg/dl VERY HIGH Performed By: #### L IPID, CMP #### [facility] [address] [place] [address] Dr. Aparna Teran Triglyceride [Mass/Vol] 107 mg/dL Normal <=150 [facility] Comment on above: Performed By: #### L IPID, CMP #### [facility] [address] [place] [address] Dr. Aparna Teran VLDL CALC 21.4 mg/dL Normal [facility] Comment on above: Performed By: #### L IPID, CMP #### [facility] [address] [place] [address] Dr. Aparna Teran PROF 14(COMP METB)on 022 Albumin [Mass/Vol] 3.8 g/dL Normal 3.4-5.0 [facility] Comment on above: Performed By: #### L IPID, CMP #### [facility] [address] [place] [address] [address] Aparna Teran Albumin/Globulin [Mass ratio] 1.1 {ratio} Normal [facility] Comment on above: Performed By: #### L IPID, CMP #### [facility] [address] [place] [place] [address] [address] Aparna Teran ALP [Catalytic activity/Vol] 100 U/L Normal 46-116 [facility] Comment on above: Performed By: #### L IPID, CMP #### [facility] [address] [place] [address] [address] Aparna Teran ALT [Catalytic activity/Vol] 35 U/L Normal 16-63 [facility] Comment on above: Performed By: #### L IPID, CMP #### [facility] [address] [place] [address] [address] Aparna Teran Anion gap [Moles/Vol] 9.2 mmol/L Normal [facility] Comment on above: Performed By: #### L IPID, CMP #### [facility] [address] [place] [place] [address] [address] Aparna Teran AST [Catalytic activity/Vol] 24 U/L Normal 15-37 [facility] Comment on above: Performed By: #### L IPID, CMP #### [facility] [address] [place] [place] [address] [address] Aparna Teran Bilirubin [Mass/Vol] 0.6 mg/dL Normal 0.2-1.0 [facility] Comment on above: Performed By: #### L IPID, CMP #### [facility] [address] [place] [address] [address] Aparna Teran Calcium [Mass/Vol] 8.9 mg/dL Normal 8.5-10.1 [facility] Comment on above: Performed By: #### L IPID, CMP #### [facility] [address] [place] [address] [address] Aparna Teran Chloride [Moles/Vol] 103 mmol/L Normal 98-107 [facility] Comment on above: Performed By: #### L IPID, CMP #### [facility] [address] [place] [address] [address] Aparna Teran CO2 [Moles/Vol] 29.0 mmol/L Normal 21.0-32.0 [facility] Comment on above: Performed By: #### L IPID, CMP #### [facility] [address] [place] [address] [address] Aparna Teran Creatinine [Mass/Vol] 1.13 mg/dL Normal 0.70-1.30 [facility] Comment on above: Performed By: #### L IPID, CMP #### [facility] [address] [place] [address] [address] Aparna Teran EGFR-AF LIBERIAN >60 Normal >=60 [facility] Comment on above: Performed By: #### L IPID, CMP #### [facility] [address] [place] [address] Dr. Aparna Teran EGFR-NON AF LIBERIAN >60 Normal >=60 [facility] Comment on above: Performed By: #### L IPID, CMP #### [facility] [address] [place] [address] [address] Aparna Teran Globulin (S) [Mass/Vol] 3.4 g/dL Normal [facility] Comment on above: Performed By: #### L IPID, CMP #### [facility] [address] [place] [address] [address] Aparna Teran Glucose [Mass/Vol] 102 mg/dL Normal 74-106 [facility] Comment on above: Performed By: #### L IPID, CMP #### [facility] [address] [place] [address] [address] Aparna Teran Potassium [Moles/Vol] 4.2 mmol/L Normal 3.5-5.1 [facility] Comment on above: Performed By: #### L IPID, CMP #### [facility] [address] [place] [address] [address] Aparna Teran Protein [Mass/Vol] 7.2 g/dL Normal 6.4-8.2 [facility] Comment on above: Performed By: #### L IPID, CMP #### [facility] [address] [place] [address] [address] Aparna Teran Sodium [Moles/Vol] 137 mmol/L Normal 136-145 [facility] Comment on above: Performed By: #### L IPID, CMP #### [facility] [address] [place] [address] [address] Aparna Teran Urea nitrogen [Mass/Vol] 22.0 mg/dL Critically high 7.0-18.0 [facility] Comment on above: Performed By: #### L IPID, CMP #### [facility] [address] [place] [address] [address] Aparna Teran Urea nitrogen/Creatinine [Mass ratio] 19.5 mg/mg Normal [facility] Comment on above: Performed By: #### L IPID, CMP #### [facility] [address] [place] [address] Dr. Aparna Teran MRI KNEE RT WO [...] FAYE ARAUZ Date: 2021-08-28 07:15 Normal [facility] Covid-19 PCR (CVDTBH)on 07-05 SARS-CoV-2 (COVID-19) RNA LAUREN+probe Ql (Unsp spec) Detected Critically abnormal NOT DETECTED [facility] Comment on above: Result Comment: This test is not yet approved or cleared by the [place] FDA. When there are no FDA-approved or cleared tests available, and other criteria are met, FDA can make tests available under an emergency access mechanism called an Emergency Use Authorization (EUA). The EUA for this test is supported by the Railroad Brake [employer]airer of Health and Human Service's (HHS's) declaration [...] longer be used). Performed By: #### [facility] #### [facility] [address] [place] [address] Dr. Aparna Teran Encounters Encounter Date Encounter Type Care Provider Facility Start: 07-15-2022 Encounter for genera l adult medical examination without abnormal findings DR CAROLE BRISCOE [facility] Start: 07-11-2022 End: 07-12-[address] [...] above: Performed By: #### P SAS #### [facility] [address] [place] [address] Dr. Aparna Teran Payers Date Payer Category Payer Unknown [id number] [id number] [id number] 1965 Unknown [id number] [id number] [id number] 1965 Unknown [id number] [id number] [id number] 1957 Unknown [id number] Summary Purpose Family History No Family History Records FoundNo Family History Records Found Advance Directives No Advanced Directives Records FoundNo Advanced Directives Records Found Additional Source Comments (unrecognized sect ion and content) No Status Records FoundNo Status Records Found INFORMATION SOURCE (unrecogn ized section and content) DATE CREATED AUTHOR 07/16/2022 [facility] DATE CREATED AUTHOR AUTHOR'S ABHIJEET LOPEZ 11/24/2024 [facility] FOR RECORDS PERTAINING TO PATIENTS [...] BE BASED ON THE PRIMARY CLINICAL RECORDS. [facility] [employer] provides no warranty or guarantee of the accuracy or completeness of information in this document.
== END 2025-04-20 10:52 | disposition home or self-care (01) ==
LOC: RAD 10:54
PROVIDERS: PCP Family Medicine; Visit Provider Family Medicine
DX: R07.89 Other chest pain (principal)
CPT/HCPCS: 71046; 71100